=== PATIENT | female | born 1955 | race Hispanic/Latino ===

== ENCOUNTER 2022-06-15 22:41 | Emergency (ER) | payer MEDICARE ==
[~2022-06-15] VITALS: Ht 157.5 cm; Wt 99.8 kg
[2022-06-15 23:15] LABS: BASOPHILS # (AUTO) 0.1 (0.0-0.1); BASOPHILS % 0.5 % (0.0-1.0); EOSINOPHILS # (AUTO) 0.3 (0.0-0.4); EOSINOPHILS % 2.3 % (0.0-6.0); HEMATOCRIT 44.7 % (34.2-44.1); HEMOGLOBIN 13.7 g/dL (12.0-16.0); LYMPHOCYTES # (AUTO) 2.8 (1.0-3.2); LYMPHOCYTES % 25.3 % (18.0-39.1); MEAN CORPUSCULAR HEMOGLOBIN 27.3 pg (28-32); MEAN CORPUSCULAR HGB CONC 30.6 g/dL (31-35); MEAN CORPUSCULAR VOLUME 89.2 fL (81-99); MONOCYTES # (AUTO) 0.5 (0.2-0.8); MONOCYTES % 4.2 % (4.4-11.3); NEUTROPHILS # (AUTO) 7.3 (2.1-6.9); NEUTROPHILS % 67.3 % (38.7-80.0); PLATELET COUNT 328 x10e3/uL (140-360); RED BLOOD COUNT 5.01 x10e6/uL (3.6-5.1); RED CELL DISTRIBUTION WIDTH 12.6 % (11.7-14.4)
[2022-06-15 23:26] LABS: INR 0.89; PARTIAL THROMBOPLASTIN TIME 25.9 seconds (23.8-35.5); PROTHROMBIN TIME 12.8 seconds (11.9-14.5)
[2022-06-15 23:27] LABS: AMPHETAMINES SCREEN,URINE NEGATIVE (NEGATIVE); BENZODIAZEPINES SCREEN,URINE NEGATIVE (NEGATIVE); COLOR,URINE RED (YELLOW); PHENCYCLIDINE SCREEN,URINE NEGATIVE (NEGATIVE)
[2022-06-15 23:28] LABS: CLARITY,URINE CLOUDY (CLEAR); KETONES,URINE NEGATIVE (NEGATIVE); LEUKOCYTE ESTERASE ,URINE NEGATIVE (NEGATIVE); NITRITE,URINE NEGATIVE (NEGATIVE); PROTEIN,URINE DIPSTICK >=300 (NEGATIVE); URINE UROBILINOGEN 0.2 mg/dL (0.2 - 1)
[2022-06-15 23:34] LABS: CREATINE KINASE 34 IU/L (29-168)
[2022-06-15 23:40] LABS: BACTERIA,URINE FEW /HPF; EPITHELIAL CELLS,URINE FEW /LPF; RBC,URINE >50 /HPF (0-5)
[2022-06-15 23:54] LABS: ALANINE AMINOTRANSFERASE 20 IU/L (0-55); ALBUMIN 4.2 g/dL (3.5-5.0); ALBUMIN/GLOBULIN RATIO 1.3 (0.8-2.0); ALKALINE PHOSPHATASE 142 IU/L (40-150); ANION GAP 21.2 mmol/L (8-16); BLOOD UREA NITROGEN 10 mg/dL (7-26); BUN/CREATININE RATIO 11 (6-25); CALCIUM 9.5 mg/dL (8.4-10.2); CARBON DIOXIDE 20 mmol/L (22-29); CHLORIDE 101 mmol/L (98-107); CREATININE, SERUM 0.92 mg/dL (0.57-1.11); GLUCOSE 332 mg/dL (74-118); POTASSIUM 3.2 mmol/L (3.5-5.1); SODIUM 139 mmol/L (136-145)
[2022-06-16] MEDS ORDERED: LISINOPRIL10 MG PO (03:59)
[2022-06-16] MEDS ORDERED: METFORMIN HCL500 MG PO (03:59)
[2022-06-16 04:05] VITALS: BP 161/60
== END 2022-06-16 04:11 | disposition home or self-care (01) ==
LOC: ER 22:44
DX: N95.0 Postmenopausal bleeding (principal); I10 Essential (primary) hypertension; R73.9 Hyperglycemia, unspecified; R94.31 Abnormal electrocardiogram [ECG] [EKG]
CPT/HCPCS: 36415; 76830; 76856; 80053; 80307; 81001; 82550; 82553; 84484; 85025; 85610; 85730; 93005; 99284

== ENCOUNTER → 2022-11-18 | Day surgery (SDC) | payer MEDICARE ==
[2022-10-14 13:42] LABS: BASOPHILS # (AUTO) 0.1 (0.0-0.1); BASOPHILS % 0.5 % (0.0-1.0); EOSINOPHILS # (AUTO) 0.2 (0.0-0.4); EOSINOPHILS % 2.2 % (0.0-6.0); HEMATOCRIT 34.4 % (34.2-44.1); HEMOGLOBIN 9.9 g/dL (12.0-16.0); LYMPHOCYTES # (AUTO) 2.2 (1.0-3.2); LYMPHOCYTES % 19.6 % (18.0-39.1); MEAN CORPUSCULAR HEMOGLOBIN 22.8 pg (28-32); MEAN CORPUSCULAR HGB CONC 28.8 g/dL (31-35); MEAN CORPUSCULAR VOLUME 79.3 fL (81-99); MONOCYTES # (AUTO) 0.5 (0.2-0.8); MONOCYTES % 4.8 % (4.4-11.3); NEUTROPHILS % 72.5 % (38.7-80.0); PLATELET COUNT 396 x10e3/uL (140-360); RED BLOOD COUNT 4.34 x10e6/uL (3.6-5.1); RED CELL DISTRIBUTION WIDTH 13.5 % (11.7-14.4)
[2022-11-13 09:02] LABS: BASOPHILS # (AUTO) 0.1 (0.0-0.1); BASOPHILS % 0.7 % (0.0-1.0); EOSINOPHILS # (AUTO) 0.3 (0.0-0.4); EOSINOPHILS % 3.1 % (0.0-6.0); HEMATOCRIT 34.7 % (34.2-44.1); LYMPHOCYTES # (AUTO) 1.7 (1.0-3.2); LYMPHOCYTES % 20.1 % (18.0-39.1); MEAN CORPUSCULAR HEMOGLOBIN 22.5 pg (28-32); MEAN CORPUSCULAR HGB CONC 28.8 g/dL (31-35); MONOCYTES # (AUTO) 0.5 (0.2-0.8); MONOCYTES % 5.6 % (4.4-11.3); NEUTROPHILS # (AUTO) 5.7 (2.1-6.9); NEUTROPHILS % 70.1 % (38.7-80.0); PLATELET COUNT 375 x10e3/uL (140-360); RED BLOOD COUNT 4.45 x10e6/uL (3.6-5.1); RED CELL DISTRIBUTION WIDTH 15.4 % (11.7-14.4)
[~2022-11-18] MED LIST: ACETAMINOPHEN PO; ASPIRIN81 MG PO; CODEINE PO; FENTANYL CITRATE/PF 100MCG/2 ML INJ ONE; IBUPROFEN600 MG PO; LACTATED RINGER'S 1,000 ML ONE; LISINOPRIL10 MG PO; METFORMIN HCL500 MG PO; MIDAZOLAM HCL 2 MG/2 ML VIAL ONE; OR PHACO EYE KIT ONE; PREOP PHACO EYE KIT ONE
[2022-11-18 09:20] VITALS: BP 169/73
== END | disposition home or self-care (01) ==
LOC: OR 08:18
PROVIDERS: ATTEND Ophthalmology
DX: H25.12 Age-related nuclear cataract, left eye (principal); Z01.812 Encounter for preprocedural laboratory examination; Z79.82 Long term (current) use of aspirin; Z79.84 Long term (current) use of oral hypoglycemic drugs; Z79.899 Other long term (current) drug therapy
CPT/HCPCS: 36415 ×2; 66984; 85025 ×2; J2250; J3010; J7121; V2632

== ENCOUNTER → 2025-02-10 | Day surgery (SDC) | payer MEDICARE ==
[2025-02-09 09:50] LABS: BASOPHILS % 0.2 % (0.0-1.0); EOSINOPHILS % 2.3 % (0.0-6.0); LYMPHOCYTES % 11.7 % (18.0-39.1); MONOCYTES % 5.7 % (4.4-11.3); NEUTROPHILS % 79.6 % (38.7-80.0); RED CELL DISTRIBUTION WIDTH 13.5 % (11.7-14.4)
[2025-02-09 10:22] LABS: EST GLOMERULAR FILTRATION RATE 86.0 ML/MIN (>=60)
[~2025-02-10] MED LIST changes: +DEXAMETHASONE SOD PHOS INJ 4 MG/ML SDV ONE; +EFFIENT10 MG PO; +EPHEDRINE SULFATE INJ 50 MG/ML VIAL ONE; +GABAPENTIN100 MG PO; +HEPARIN 500 UNITS/5ML MDV INJ ONE; -LACTATED RINGER'S 1,000 ML ONE; +LIDOCAINE HCL 2% LOCAL INJ 5 ML SDV VIAL INJ ONE; +LIPITOR10 MG PO; +LOSARTAN POTASS25 MG PO; +METOPROLOL SUCC50 MG PO; +ONDANSETRON HCL INJ 2MG/ML 2ML 2 MG/ML VIAL ONE; -OR PHACO EYE KIT ONE; -PREOP PHACO EYE KIT ONE; +PROPOFOL IV EMULSION 10 MG/ML 20 ML VIAL ONE; +VITAMIN B121000 MCG PO; +WARFARIN SODIUM3 MG PO
[2025-02-10] MEDS: LACTATED RINGER'S 1,000 ML ONE (08:22)
[2025-02-10 09:15] LABS: INR 1.52
[2025-02-10] MEDS: FENTANYL CITRATE/PF 100MCG/2 ML INJ ONE (11:05)
[2025-02-10 11:25] VITALS: TEMP 98.2
[2025-02-10 11:45] VITALS: BP 166/66; PULSE 64; RESP 18; O2SAT 100
== END | disposition home or self-care (01) ==
LOC: OR 06:36
PROVIDERS: ATTEND Podiatrist Foot Surgery
DX: S91.105A Unspecified open wound of left lesser toe(s) without damage to nail, initial encounter (principal); E11.9 Type 2 diabetes mellitus without complications; I73.9 Peripheral vascular disease, unspecified; I10 Essential (primary) hypertension; E78.5 Hyperlipidemia, unspecified; X58.XXXA Exposure to other specified factors, initial encounter; Z88.8 Allergy status to other drugs, medicaments and biological substances; Z01.810 Encounter for preprocedural cardiovascular examination; Z01.812 Encounter for preprocedural laboratory examination; Z01.818 Encounter for other preprocedural examination; Z79.82 Long term (current) use of aspirin; Z79.01 Long term (current) use of anticoagulants; Z79.899 Other long term (current) drug therapy; Z79.84 Long term (current) use of oral hypoglycemic drugs; Z95.820 Peripheral vascular angioplasty status with implants and grafts
CPT/HCPCS: 15004; 15275; 36415 ×2; 71046; 80048; 82948; 85025; 85610; 85730; 93005; J1100; J2003; J2250; J2405; J2704; J3010; J7121; Q4104

== ENCOUNTER → 2025-03-01 | Outpatient (REF) | payer MEDICARE ==
[~2025-03-01] MED LIST changes: -DEXAMETHASONE SOD PHOS INJ 4 MG/ML SDV ONE; -EPHEDRINE SULFATE INJ 50 MG/ML VIAL ONE; -FENTANYL CITRATE/PF 100MCG/2 ML INJ ONE; -HEPARIN 500 UNITS/5ML MDV INJ ONE; -LIDOCAINE HCL 2% LOCAL INJ 5 ML SDV VIAL INJ ONE; -MIDAZOLAM HCL 2 MG/2 ML VIAL ONE; -ONDANSETRON HCL INJ 2MG/ML 2ML 2 MG/ML VIAL ONE; -PROPOFOL IV EMULSION 10 MG/ML 20 ML VIAL ONE
== END ==
LOC: RAD 15:56
PROVIDERS: ATTEND Podiatrist Foot Surgery
DX: I82.402 Acute embolism and thrombosis of unspecified deep veins of left lower extremity (principal)
CPT/HCPCS: 93971

== ENCOUNTER 2025-04-20 19:13 | Inpatient (IN) | payer MEDICARE ==
[~2025-04-20] VITALS: Ht 154.9 cm; Wt 81.2 kg
[2025-04-20 20:55] LABS: BASOPHILS % 0.0 % (0.0-1.0); EOSINOPHILS % 2.0 % (0.0-6.0); LYMPHOCYTES % 13.2 % (18.0-39.1); MONOCYTES % 4.2 % (4.4-11.3); NEUTROPHILS % 80.4 % (38.7-80.0); RED CELL DISTRIBUTION WIDTH 14.1 % (11.7-14.4)
[2025-04-20 21:09] LABS: INR 4.63
[2025-04-20 21:20] LABS: EST GLOMERULAR FILTRATION RATE 47.0 ML/MIN (>=60)
[2025-04-20] MEDS: PHYTONADIONE 10 MG/ML AMP SQ ONE (21:40)
[2025-04-20] MEDS ORDERED: ONDANSETRON HCL INJ 2MG/ML 2ML 2 MG/ML VIAL IV PRN (22:30)
[2025-04-20] MEDS ORDERED: DEXTROSE 50% SYRINGE 50 ML IV PRN (22:30)
[2025-04-20 22:44] VITALS: PULSE 75; RESP 16; TEMP 98.4
[2025-04-20] MEDS ORDERED: SEVOFLURANE INHAL SOLN 250 ML PEN BTL ONE (22:51)
[2025-04-20 23:34] VITALS: BP 144/67; O2SAT 100
[2025-04-20 23:40] VITALS: BP 144/67; O2SAT 100
[2025-04-20] MEDS ORDERED: ASPIRIN CHEW81 MG PO (23:48)
[2025-04-20] MEDS ORDERED: VITAMIN B-121000 MCG PO (23:48)
[2025-04-20] MEDS ORDERED: HYDRALAZINE HCL25 MG PO (23:48)
[2025-04-20] MEDS: SODIUM CHLORIDE 0.9% 1000ML 1,000 ML IV SCH (23:54)
[2025-04-21] VITALS (11 sets, daily range): BP systolic 136–161; BP diastolic 57–67; PULSE 62–78; RESP 16–18; TEMP 97.4–98.3; O2SAT 96–100
[2025-04-21 06:55] LABS: BASOPHILS % 0.3 % (0.0-1.0); EOSINOPHILS % 2.7 % (0.0-6.0); LYMPHOCYTES % 17.7 % (18.0-39.1); MONOCYTES % 6.2 % (4.4-11.3); NEUTROPHILS % 72.5 % (38.7-80.0); RED CELL DISTRIBUTION WIDTH 14.1 % (11.7-14.4)
[2025-04-21 06:58] LABS: INR 4.36
[2025-04-21 07:21] LABS: EST GLOMERULAR FILTRATION RATE 63.0 ML/MIN (>=60)
[2025-04-21] MEDS: INSULIN REGULAR, HUMAN 100 UNIT/1 ML SQ SCH (07:30)
[2025-04-21] MEDS ORDERED: PROPOFOL IV EMULSION 10 MG/ML 20 ML VIAL ONE (11:00)
[2025-04-21] MEDS ORDERED: LIDOCAINE HCL 2% LOCAL INJ 5 ML SDV VIAL INJ ONE (11:00)
[2025-04-21] MEDS ORDERED: FENTANYL CITRATE/PF 100MCG/2 ML INJ ONE (11:20)
[2025-04-21] MEDS ORDERED: ONDANSETRON HCL INJ 2MG/ML 2ML 2 MG/ML VIAL ONE (11:20)
[2025-04-21] MEDS ORDERED: DEXAMETHASONE SOD PHOS INJ 4 MG/ML SDV ONE (11:20)
[2025-04-21] MEDS ORDERED: PHENYLEPHRINE HCL 1% 10 MG/ML VIAL ONE (11:38)
[2025-04-21] MEDS: ATORVASTATIN 40 MG TAB PO SCH (20:36)
[2025-04-22] VITALS: BP 155/58; PULSE 63; RESP 18; TEMP 98.1; O2SAT 100
[2025-04-22 04:00] VITALS: BP 155/65; PULSE 65; RESP 18; TEMP 97.8; O2SAT 100
[2025-04-22 08:00] VITALS: BP 159/63; PULSE 61; RESP 19; TEMP 98; O2SAT 100
[2025-04-22] MEDS: GABAPENTIN 100 MG CAP PO SCH (08:26)
[2025-04-22] MEDS: HYDRALAZINE HCL 25 MG TAB PO SCH (08:31)
[2025-04-22] MEDS: HYDROCODONE/APAP 7.5MG-325MG 1 EA TAB PO PRN (08:31)
[2025-04-22] MEDS: LOSARTAN POTASSIUM 25 MG TAB PO SCH (08:32)
[2025-04-22 12:00] VITALS: BP 149/47; PULSE 64; RESP 18; TEMP 98.3; O2SAT 100
[2025-04-22 16:00] VITALS: BP 137/51; PULSE 64; RESP 18; TEMP 97.6; O2SAT 99
[2025-04-22 20:00] VITALS: BP 129/55; PULSE 61; RESP 18; TEMP 97.6; O2SAT 100
[2025-04-23] VITALS (10 sets, daily range): BP systolic 129–154; BP diastolic 55–85; PULSE 62–72; RESP 16–20; TEMP 97.7–98.4; O2SAT 97–100
[2025-04-23] MEDS: LOSARTAN POTASSIUM 25 MG TAB PO SCH (09:00)
[2025-04-23] MEDS: HYDRALAZINE HCL 25 MG TAB PO SCH (15:00)
[2025-04-23] MEDS: LOSARTAN POTASSIUM 25 MG TAB PO STA (18:29)
[2025-04-24 00:25] VITALS: BP 149/62; PULSE 65; RESP 16; TEMP 98; O2SAT 99
[2025-04-24 01:09] VITALS: BP 149/62; PULSE 69; RESP 16; TEMP 98; O2SAT 99
[2025-04-24 04:30] VITALS: BP 129/62; PULSE 62; RESP 16; TEMP 97.8; O2SAT 99
[2025-04-24 08:14] LABS: INR 1.11
[2025-04-24 08:55] VITALS: BP 164/58; PULSE 64; RESP 18; TEMP 98.1; O2SAT 98
[2025-04-24 12:07] VITALS: BP 165/62; PULSE 65; RESP 18; TEMP 98.2; O2SAT 100
[2025-04-24 12:47] VITALS: BP 165/62; PULSE 65; RESP 18; TEMP 98.2; O2SAT 100
== END 2025-04-24 15:55 | disposition home health service (06) | DRG 617 ==
LOC: ER 20:30 → ERHOLD 22:25 → MED/SURG3 23:00
PROVIDERS: ADMIT Internal Medicine; ATTEND Internal Medicine
PROC: 0Y6S0Z0 Detachment at Left 2nd Toe, Complete, Open Approach (ICD-10-PCS; principal; 2025-04-21 11:10)
DX: E11.69 Type 2 diabetes mellitus with other specified complication (principal); C78.00 Secondary malignant neoplasm of unspecified lung; Z16.24 Resistance to multiple antibiotics; E11.52 Type 2 diabetes mellitus with diabetic peripheral angiopathy with gangrene; B96.5 Pseudomonas (aeruginosa) (mallei) (pseudomallei) as the cause of diseases classified elsewhere; T45.511A Poisoning by anticoagulants, accidental (unintentional), initial encounter; E11.65 Type 2 diabetes mellitus with hyperglycemia; C54.1 Malignant neoplasm of endometrium; E78.5 Hyperlipidemia, unspecified; I10 Essential (primary) hypertension; Z79.01 Long term (current) use of anticoagulants; Z79.82 Long term (current) use of aspirin; Z79.84 Long term (current) use of oral hypoglycemic drugs; Z95.820 Peripheral vascular angioplasty status with implants and grafts
CPT/HCPCS: 36415; 71045; 76000; 80048; 80053; 82948; 85025; 85610; 85730; 86850; 86870; 86880; 86900; 86905; 87071; 87075; 87186; 87205; 88304; 88305; 88311; 93005; 94799; 99001; 99284; J1100; J2003; J2371; J2405; J2543; J3430; J7030